=== PATIENT | female | born 1950 | race Caucasian/White ===

== ENCOUNTER → 2022-01-20 10:25 | Outpatient (CLI) | payer OTHER, SELFPAY ==
--- NOTE | 2022-01-20 | DI.MG.S_ITS ---
BILATERAL DIGITAL DIAGNOSTIC MAMMOGRAM 3D/2D: 01/20/2022 CLINICAL: Routine breast lump. Comparison is made to exams dated: 09/08/2019 mammogram and 09/22/2015 mammogram - Outside facility. There are scattered fibroglandular elements in both breasts. There is 4.3 cm equal density architectural distortion with a spiculated margin in the right breast at 12 o'clock middle depth. This is seen in additional views. This correlates as palpated. There is skin retraction and thickening associated with the architectural distortion. There is a 0.9 cm mass central within this area at the 12:00 position. No other significant masses, calcifications, or other findings are seen in either breast. IMPRESSION: INCOMPLETE: NEEDS ADDITIONAL IMAGING EVALUATION The 4.3 cm equal density architectural distortion in the right breast causes nipple retraction and skin thickening and is suspicious. Ultrasound is recommended for full evaluation of this area. This was performed immediately following this exam. This exam was interpreted at Station ID: [id number]. NOTE: For mammograms, a report in lay terms will be sent to the patient. Approximately 15% of breast malignancies will not be visualized mammographically. In the management of a palpable breast mass, a negative mammogram must not discourage biopsy of a clinically suspicious lesion. Electronically Signed By: Tami blackwood/:01/20/2022 12:13:55 ACR BI-RADS Category 0: Incomplete [id number]
--- NOTE | 2022-01-20 | DI.US.S_ITS ---
LIMITED ULTRASOUND OF RIGHT BREAST: 01/20/2022 CLINICAL: Palpable right breast lump. Comparison is made to exams dated: 01/20/2022 mammogram - [facility], 09/08/2019 mammogram, and 09/22/2015 mammogram - Outside facility. Color flow and real-time ultrasound of the right breast 12 o'clock region were performed. Wolf scale images of the real-time examination were reviewed. There is a 3.3 cm x 4.1 cm x 2 cm irregular, very dense, shadowing mass with a spiculated margin in the right breast at 12 o'clock middle depth. This irregular mass is hypoechoic. This correlates as palpated and with mammography findings. There is associated architectural distortion. Color flow imaging demonstrates that there is no increase in vascularity. No findings in the right axilla. IMPRESSION: HIGHLY SUGGESTIVE OF MALIGNANCY The 3.3 cm x 4.1 cm x 2 cm irregular mass in the right breast is highly suggestive of malignancy. An ultrasound guided biopsy is recommended. Findings and recommendations were discussed with the patient in person by Dr. Alicea at time of exam. This exam was interpreted at Station ID: [id number]. Electronically Signed By: Tami blackwood/:01/20/2022 12:42:20 letter sent: Biopsy Required Ultrasound BI-RADS: 5 Highly suggestive of malignancy
== END ==
PROVIDERS: PCP Internal Medicine; Referring Provider Internal Medicine; Visit Provider Internal Medicine
DX: R92.8 Other abnormal and inconclusive findings on diagnostic imaging of breast (principal); N63.12 Unspecified lump in the right breast, upper inner quadrant
CPT/HCPCS: 76642; 77066; G0279